=== PATIENT | male | born 1955 | race Caucasian/White ===

== ENCOUNTER 2024-06-03 06:48 | Day surgery (SDC) | payer OTHER, SELFPAY ==
[2024-05-21 10:50] LABS: Hematocrit 43.3 % (39.0-52.0); Hemoglobin 14.6 g/dL (13.0-18.0); Mean Corp Hgb Conc. 33.7 g/dL (33.0-37.0); Mean Corpuscular Hgb 31.1 pg (27.0-31.0); Mean Corpuscular Volume 92.1 fL (80.0-94.0); Mean Platelet Volume 11.8 fL (7.4-10.4); Platelet Count 146 10^3/uL (130-400); Red Cell Dist. Width 11.9 % (11.5-14.5); White Blood Cell Count 4.6 10^3/uL (4.8-10.8)
[2024-05-21 11:27] LABS: Blood Urea Nitrogen 16 mg/dl (9-20); Calcium 9.3 mg/dl (8.4-10.2); Carbon Dioxide 32 mmol/L (22-30); Chloride 102 mmol/L (98-107); Glucose 91 mg/dl (70-99); Potassium 4.5 mmol/L (3.5-5.1); Sodium 142 mmol/L (135-145); eGFR > 60.00
[2024-05-21 13:53] VITALS: BMI 27.5
[2024-06-03] VITALS (7 sets, daily range): BP systolic 124–144; BP diastolic 64–78; BMI 27.5
[2024-06-03] MEDS: TYLENOL 1000 MG PO (13:44)
[2024-06-03] MEDS: CELEBREX 200 MG PO (13:44)
[2024-06-03] MEDS: NORMOSOL-R/PLASMALYTE-A 1000 IV (13:45)
== END 2024-06-03 18:20 | disposition home or self-care (01) ==
LOC: SDS 06:48
PROVIDERS: ATTENDING PHYSICIAN Orthopaedic Surgery; FAMILY PHYSICIAN Family Medicine
DX: S83.231A Complex tear of medial meniscus, current injury, right knee, initial encounter (principal); X58.XXXA Exposure to other specified factors, initial encounter; M94.261 Chondromalacia, right knee
CPT/HCPCS: 29881; 36415; 80048; 85027; 93005